=== PATIENT | female | born 1980 ===

== ENCOUNTER 2024-12-11 09:23 | Outpatient (REF) | payer BC, SELFPAY ==
--- NOTE | 2024-12-11 08:45 | PAPFT_PTH ---
PATIENT: MELODIE PANG LOC: [facility] U#:[id number] AGE/SX: 44/F ROOM: RE12/11/[address]: Kati Glez DO : 1980 BED: DIS: 12/11/2024 SPEC #: [id number] RECD: 12/11/24 12:46 STATUS: DELFINA REQ #: [id number] [place]: 12/11/24 08:[address]: Kati Glez DEPT: [facility] Cytology RECD BY: Aparna Benítez ENTERED: 12/11/24 12:46 SP TYPE: PAPFT OTHR DR: Unknown,Unknown Tissues: 1 - CX/ENDOCX FOR PAP SMEARS Procedures: PAP THIN PREP/[facility] Screening HPV DNA PROBE Comments: [id number] (HPV 16 & 18/45)
== END 2024-12-11 09:24 | disposition home or self-care (01) ==
LOC: LBN 09:23
PROVIDERS: Visit Provider Obstetrics & Gynecology
DX: Z11.51 Encounter for screening for human papillomavirus (HPV) (principal); Z01.419 Encounter for gynecological examination (general) (routine) without abnormal findings
CPT/HCPCS: 88142; 87624